=== PATIENT | male | born 1980 | race Caucasian/White ===

== ENCOUNTER 2019-06-05 22:39 | Emergency (ER) | payer MEDICAID ==
[~2019-06-05] VITALS: Ht 170.2 cm; Wt 72.1 kg
[2019-06-05 22:41] VITALS: Ht 170.2 cm; Wt 72.1 kg
[2019-06-06 00:59] VITALS: BP 115/77
== END 2019-06-06 00:59 | disposition left against medical advice (07) ==
LOC: ED 22:39
DX: R22.31 Localized swelling, mass and lump, right upper limb (principal); Z88.0 Allergy status to penicillin
CPT/HCPCS: J0696; J3370; J7050

== ENCOUNTER 2019-06-06 19:38 | Inpatient (IN) | payer MEDICAID ==
[~2019-06-06] VITALS: Ht 172.7 cm; Wt 79.4 kg
[2019-06-06 19:45] VITALS: Ht 172.7 cm; Wt 79.4 kg
--- NOTE | 2019-06-06 20:10 | NUR ---
PT PRESENTS TO ED AFTER LEAVING AMA LAST NIGHT FOR SAME COMPLAINT. PT C/O R ARM CELLULITIS AND ABSCESS AFTER INJECTING HEROIN. PT STATES THAT THE INFECTION HAS BEEN GETTING INCREASINGLY WORSE OVER THE PAST FEW DAYS. PT NOTED WITH SEVERAL SCABS OF DIFFERENT STAGES OF HEALING OVER BILATERAL ARMS. PT DISCHARGED WITH [facility] YESTERDAY BUT DID NOT FILL RX. PT NOTED WITH SWELLING TO THE R HAND. PT AOX4, RESP EVEN AND UNLABORED, NO ACUTE DISTRESS NOTED. DR OLIVO AT BEDSIDE FOR MSE.
--- NOTE | 2019-06-06 20:40 | NUR ---
XRAY AT BEDSIDE.
--- NOTE | 2019-06-06 20:49 | NUR ---
ULTRASOUND AT BEDSIDE.
--- NOTE | 2019-06-06 21:13 | NUR ---
JEANNIE ELDRIDGE AT BEDSIDE TO ATTEMPT IV PLACEMENT.
--- NOTE | 2019-06-06 21:22 | NUR ---
AFTER LOOKING FOR IV SITE ON PT, PT ASKED "CAN WE JUST DO THE OTHER ONE?" REFERRING TO IV ACCESS THROUGH HIS NECK. EXPLAINED TO PT THAT DUE TO HIM REFUSING AND LEAVING AMA YESTERDAY THAT WE WERE LOOKING FOR PERIPHERAL IV SITE FIRST. PT STATED HE IS WILLING TO DO THE CENTRAL LINE INSERTION IF NEEDED. EXPLAINED TO PT THAT I WILL INFORM DR. OLIVO, IN ORDER FOR DR. OLIVO TO EXPLAIN AND EDUCATE THE CENTRAL LINE PROCEDURE WELL RISKS. PT GAVE UNDERESTANDING. INFORMED PRIMARY RN AND DR. OLIVO OF PT REQUEST.
--- NOTE | 2019-06-06 21:30 | NUR ---
DR OLIVO AT BEDSIDE TO EVALUATE OPTIONS FOR IV PLACEMENT. WE WILL NOW ATTEMPT IV PLACEMENT USING ULTRASOUND BY DR OLIVO.
--- NOTE | 2019-06-06 22:33 | NUR ---
DR OLIVO UNSUCCESSFULLY ATTEMPTED TO PERFORM INTERNAL JUGULAR LINE PLACEMENT AT BEDSIDE WITH JAZZ FROM ULTRASOUND AT BEDSIDE WELL. PT TOLERATED PROCEDURE WELL, NIMO EMT AT BEDSIDE HOLDING PRESSURE ON NECK AFTER REMOVAL OF LINE.
[2019-06-06 22:34] LABS: PLATELET COUNT 305 x10^3mcL (130-400)
[2019-06-06 22:42] LABS: CALCIUM 8.7 mg/dL (8.5-10.1); CHLORIDE SERUM 100 mmol/L (98-107); CREATININE SERUM 0.8 mg/dL (0.7-1.3); GFR1 > 60 mL/min; GLUCOSE SERUM 132 mg/dL (74-106); POTASSIUM SERUM 4.1 mmol/L (3.5-5.1); SODIUM SERUM 130 mmol/L (136-145)
[2019-06-06 22:53] LABS: BAND NEUTROPHIL 5 % (0-10); MONOCYTE 5 % (0-7); PLATELET MORPHOLOGY PLATELETS NORMAL; SEGMENTED NEUTROPHILS 80 % (37-75); rbc morphology (normal/abnorm) NORMAL (NORMAL)
[2019-06-06 22:55] LABS: ALKALINE PHOSPHATASE 59 U/L (46-116); ALT/SGPT 14 U/L (16-63); AST/SGOT 14 U/L (15-37); BILIRUBIN TOTAL 0.58 mg/dL (0.20-1.00)
--- NOTE | 2019-06-06 22:57 | NUR ---
BLEEDING CONTROLLED TO NECK, GAUZE PLACED ON NECK.
[2019-06-06 22:58] LABS: ALBUMIN 2.4 g/dL (3.4-5.0); C REACTIVE PROTEIN 15.7 mg/dL (<=0.9)
[2019-06-06 23:23] LABS: ERYTHROCYTE SED RATE 38 mm/hr (0-15)
--- NOTE | 2019-06-07 00:16 | NUR ---
PT REPORT CALLED TO MY ELDRIDGE TO ASSUME PT CARE.
--- NOTE | 2019-06-07 00:30 | NUR ---
PT TRANSPORTED TO [facility] VIA GURNEY BY EMT. PT IN NAD
[2019-06-07 00:32] LABS: MAGNESIUM 1.6 mg/dL (1.8-2.4); PHOSPHOROUS 2.9 mg/dL (2.5-4.9)
[2019-06-07 00:40] LABS: T3 TOTAL 0.88 ng/mL
[2019-06-07 00:41] VITALS: BP 130/77
--- NOTE | 2019-06-07 00:44 | NUR ---
RECEIVED PT FROM ED VIA [facility]. ORIENTED PT TO ROOM AND SURROUNDINGS. INSTRUCTED PT ON THE USE OF CALL LIGHT FOR ASSISTANCE. ENDORSED PT TO PRIMARY NURSE KELLY
--- NOTE | 2019-06-07 00:45 | NUR ---
RECEIVED PT FROM ED. PT AOX4. DENIES PALACIOS/DIZZINESS. MED SURG PT. DENIES CP/PRESSURE. EDEMA/ERYTHEMA NOTED TO RUE. DENIES SOB/DIFFICULTY BREATHING, ON RA. DRY SCABS NOTED TO LUE, OPEN WOUNDS WITH ERYTHEMA AND EDEMA ON RUE. NO IV ACCESS. BED IN LOWEST POSITION. CALL LIGHT WITHIN REACH. WILL CONTINUE TO MONITOR.
[2019-06-07 01:01] LABS: T4(THYROXINE) 5.9 ug/dL (4.7-13.3)
--- NOTE | 2019-06-07 01:20 | NUR ---
PT REQUESTING TO SHOWER. INFORMED PT HE SHOULD NOT SHOWER DUE TO OPEN WOUNDS ON RUE. REQUESTED TO SPEAK TO DOCTOR. DR. JEAN AT BEDSIDE.
--- NOTE | 2019-06-07 01:27 | NUR ---
PT REFUSING IV ACCESS AT THIS TIME.
--- NOTE | 2019-06-07 01:55 | NUR ---
FOUND PT IN RESTROOM WITH SIGNIFICANT OTHER. ASKED THEM TO OPEN DOOR, THEY WERE UNCOOPERATIVE. INFORMED PT IF HELP IS NEEDED, WE CAN PROVIDE ASSISTANCE. PT REFUSED. PT INFORMED STAFF HE WAS LEAVING DR. MEGHANA AT BEDSIDE. PT SIGNED AMA FORM. PT AND SIGNIFICANT OTHER ESCORTED OUT BY SECURITY.
== END 2019-06-07 01:55 | disposition left against medical advice (07) | DRG 871 ==
LOC: ED 19:38 → MU 23:39
PROVIDERS: Emergency Medicine; ADMIT Internal Medicine
DX: A41.9 Sepsis, unspecified organism (principal); E43 Unspecified severe protein-calorie malnutrition; L02.413 Cutaneous abscess of right upper limb; L03.113 Cellulitis of right upper limb; E87.1 Hypo-osmolality and hyponatremia; F17.210 Nicotine dependence, cigarettes, uncomplicated; E83.42 Hypomagnesemia; Z53.21 Procedure and treatment not carried out due to patient leaving prior to being seen by health care provider; Z88.0 Allergy status to penicillin
CPT/HCPCS: 84439; G0378; J0696; J3370; Q0092

== ENCOUNTER 2019-06-13 14:20 | Inpatient (IN) | payer MEDICAID ==
[~2019-06-13] VITALS: Ht 172.7 cm; Wt 79.4 kg
[2019-06-13 14:30] VITALS: Ht 172.7 cm; Wt 79.4 kg
--- NOTE | 2019-06-13 14:45 | NUR ---
PT CAME TO THE ED TODAY WITH WOUNDS TO R ARM. PT STATES HE HAD AN ABCESS TO R UPPER ARM AND HAD SURGERY AT [facility] 2 DAYS AGO AND LEFT AMA. PT HAS BEEN SEEN AT OUR FACILITY MULTIPLE TIMES AND HAS ALSO LEFT AMA. PT HAS HX OF HEROIN USE. PT STATES HE GOT THE ABCESS FROM INJECTING HEROIN. PT HAS OPEN WOUND THAT HAD GAUZE IN PLACE TO L UPPER ARM WITH REDNESS NOTED. PT HAS ANOTHER OPEN WOUND TO R FOREARM WHICH ALSO HAD GAUZE IN PLACE THAT GOES FROM FROM FOREARM DOWN MIDWAY TO WRIST . PT HAS 3 SMALL LACS GOING FROM FINGERS TO WRIST THAT PT STATES IS FROM SURGERY. PT HASMARKS ALL OVER ARMS FROM HIS HEROIN ABUSE. PT NOTED WITH SWOLLWN HAND TO R HAND WELL. PT NOTED TO BE PROFUSELY SWEATING. PT IS AWAKE AND ALERT. BREATHING IS EVEN AND UNLABORED. PICTURES TO BE OBTAINED. WILL CONTINUE TO MONITOR.
--- NOTE | 2019-06-13 14:46 | NUR ---
PT ALSO HAS LAC TO OUTER FOREARM THAT PT STATES WAS CUT DURING SURGERY. ALSO WOUND TO UPPER ARM, THERE IS A LINE OF OPEN FLESH THAT WRAPS AROUND ENTIRE UPPER ARM. WOUND ON INNER FOREARM DOES GO FROM AC DOWN TO WRIST. WAS HARD TO SEE AT FIRST DUE TO PATIENT NOT BEING VERY COOPERATIVE TO LOOK AT ARM. PICTIRES TAKEN AND PLACED IN CHART
--- NOTE | 2019-06-13 15:00 | NUR ---
UNABLE TO ESTABLISH IV LINE. CHARGE NURSE WILFREDO ATTEMPTED 2 ATTEMPTS AT EJ AND WAS UNABLE TO THREAD THROUGH. MADE AWARE
--- NOTE | 2019-06-13 15:50 | NUR ---
PER DR PINO, HE SPOKE TO ROBERT COSME AND WAS MADE AWARE THAT WE HAD UNSUCCESSFUL IV ATTEMPTS. ROBERT COSME TOLD DR PINO THAT IT WAS OKAY AND THAT A PICC LINE WOULD BE INITIATED UPSTAIRS
--- NOTE | 2019-06-13 16:00 | NUR ---
[facility] AT BEDSIDE TO RETRIEVE HEROIN THAT PT STATES IS IN HIS LESTER PACK WITH NEEDLES
--- NOTE | 2019-06-13 16:05 | NUR ---
PER MD, DUE TO NOT BEING ABLE TO HAVE IV ACCESS, WE WILL NOT GIVE THE VANCO AT THIS TIME. PICC LINE TO BE STARTED AFTER ADMISSION.
[2019-06-13 16:23] LABS: CALCIUM 7.8 mg/dL (8.5-10.1); CARBON DIOXIDE 24.7 mmol/L (21-32); CHLORIDE SERUM 98 mmol/L (98-107); CREATININE SERUM 1.4 mg/dL (0.7-1.3); GFR1 > 60 mL/min; GLUCOSE SERUM 128 mg/dL (74-106); POTASSIUM SERUM 4.6 mmol/L (3.5-5.1); SODIUM SERUM 130 mmol/L (136-145)
[2019-06-13 16:28] LABS: ALKALINE PHOSPHATASE 61 U/L (46-116); ALT/SGPT 72 U/L (16-63); AST/SGOT 174 U/L (15-37); BILIRUBIN TOTAL 0.25 mg/dL (0.20-1.00)
--- NOTE | 2019-06-13 16:36 | NUR ---
PT TEXTING ON HIS PHONE AT THIS TIME
[2019-06-13 16:37] LABS: ALBUMIN 1.7 g/dL (3.4-5.0); TOTAL PROTEIN, SERUM 5.8 g/dL (6.4-8.2)
[2019-06-13 16:42] LABS: RED CELL DISTRIBUTION WIDTH 14.5 % (11.5-14.5)
[2019-06-13 16:55] LABS: PLATELET COUNT 404 x10^3mcL (130-400)
--- NOTE | 2019-06-13 17:00 | NUR ---
CHENTE VILLALOBOS GAVE REPORT TO ADAM ELDRIDGE ON MS FOR FURTHER CARE OF PT
--- NOTE | 2019-06-13 17:17 | NUR ---
WOUND CULTURES SENT TO LAB
[2019-06-13 17:34] LABS: microscopic required? YES; urine erythrocyte 1+ (NEGATIVE)
--- NOTE | 2019-06-13 17:42 | NUR ---
RECEIVED PT VIA GUERNEY FROM E/D, ACCOMPANIED BY TRANSPORTER. PT A/A/O X 4, ANXIOUS BUT COOPERATIVE TO CARE AT THIS TIME; PT HAS FEARS/ANXIETY R/T HOSPITAL STAY; PT STARTED CRYING AND STATED THAT HE IS "AFRAID TO ". DENIES CHEST PAIN OR DISCOMFORT AT THIS TIME. NO ACUTE RESPIRATORY DISTRESS NOTED. GENERALIZED WEAKNESS, DECREASED ROM TO RUE, FALL RISK PROTOCOL IN PLACE. RUE W/ MULTIPLE SURGICAL WOUNDS PACKED W/ GAUZE; R RADIAL PULSE WEAK, RUE W/ NON-PITTING EDEMA, GENERALIZED NUMBNESS, GENERALIZED ERYTHEMA; WOUND PACKING W/ MINIMAL SANGUINOUS DRAINAGE, NO ODOR. PT DOES NOT HAVE IV SITE AT THIS TIME, WAITING FOR PICC LINE INSERTION. ORIENTED PT TO ROOM, BED CONTROLS, CALL LIGHT SYSTEM. SIDE RAILS UP X 2, BED IN LOW POSITION. WILL ENDORSE TO CHENTE MEDINA.
[2019-06-13 18:03] LABS: BAND NEUTROPHIL 0 % (0-10); BASOPHIL 0 % (0-2); MONOCYTE 9 % (0-7); SEGMENTED NEUTROPHILS 65 % (37-75); rbc morphology (normal/abnorm) ABNORMAL (NORMAL)
[2019-06-13 18:22] VITALS: BP 162/91
--- NOTE | 2019-06-14 08:41 | NUR ---
WOUND CONSULT NOT DONE, PT. DISCHARGED.
== END 2019-06-13 19:45 | disposition left against medical advice (07) | DRG 384 ==
LOC: ED 14:20 → EDBEDREQ 15:56 → MU 15:56
PROVIDERS: Emergency Medicine; ADMIT General Practice
DX: S41.101S Unspecified open wound of right upper arm, sequela (principal); E43 Unspecified severe protein-calorie malnutrition; B95.62 Methicillin resistant Staphylococcus aureus infection as the cause of diseases classified elsewhere; S51.801S Unspecified open wound of right forearm, sequela; S61.401S Unspecified open wound of right hand, sequela; F11.20 Opioid dependence, uncomplicated; F17.210 Nicotine dependence, cigarettes, uncomplicated; Z91.14 Patient's other noncompliance with medication regimen; Z53.29 Procedure and treatment not carried out because of patient's decision for other reasons; X58.XXXS Exposure to other specified factors, sequela
CPT/HCPCS: G0378; J3370; Q0092

== ENCOUNTER 2019-06-21 16:49 | Emergency (ER) | payer MEDICAID ==
[~2019-06-21] VITALS: Ht 167.6 cm; Wt 73.0 kg
[2019-06-21 16:55] VITALS: BP 120/66; Ht 167.6 cm; Wt 73.0 kg
== END 2019-06-21 17:59 | disposition home or self-care (01) ==
LOC: ED 16:49
DX: Z48.01 Encounter for change or removal of surgical wound dressing (principal); Z88.0 Allergy status to penicillin
CPT/HCPCS: J1885

== ENCOUNTER 2020-12-07 19:55 | Emergency (ER) | payer MEDICAID ==
[~2020-12-07] VITALS: Ht 170.2 cm; Wt 77.1 kg
[2020-12-07 20:11] VITALS: BP 150/88; Ht 170.2 cm; Wt 77.1 kg
== END 2020-12-07 23:41 | disposition left against medical advice (07) ==
LOC: ED 19:55
DX: M25.571 Pain in right ankle and joints of right foot (principal); M25.572 Pain in left ankle and joints of left foot; R22.41 Localized swelling, mass and lump, right lower limb; R22.42 Localized swelling, mass and lump, left lower limb
CPT/HCPCS: 83880